=== PATIENT | female | born 1990 | race Caucasian/White ===

== ENCOUNTER 2018-04-29 21:30 | Emergency (ER) | payer BC ==
[2018-04-29 21:50] VITALS: TEMP 98.9; O2SAT 96
--- NOTE | 2018-04-29 22:29 | ED.PDOC ---
History of Present Illness - General Chief Complaint: Dental/Mouth Stated Complaint: toothache Time Seen by Provider: 04/29/18 22:26 Source: patient Exam Limitations: no limitations - History of Present Illness Initial Comments: Melina Steven 27 y/o female stated that she had toothache the last 2 days gradually getting more achy called up her dentist today and unable to see her until next week. Timing/Duration: gradual Severity: moderate EENT Location: dental Prearrival Treatment: over the counter meds Presenting Symptoms: toothache Improving Factors: nothing Worsening Factors: nothing Associated Symptoms: denies symptoms Allergies/Adverse Reactions: Allergies Cefprozil [From Cefzil] Allergy (Mild, Verified 09/23/12 06:53) Hives Penicillin G Allergy (Verified 09/23/12 06:53) Hives lorbid Allergy (Uncoded 09/23/12 00:55) Rash Home Medications: Ambulatory Orders Acetaminophen W/ Codeine [Tylenol W/ CODEINE #3] 1 ea PO Q4H PRN #12 07/25/14 Ciprofloxacin [Cipro] 500 mg PO BID #14 tab 07/25/14 Acetamin W/Cod #3 Tab [Tylenol w/CODEINE #3] 1 ea PO TID #3 tab 04/29/18 Clindamycin HCl 300 mg PO BID 10 Days #20 cap 04/29/18 Review of Systems - Review of Systems Constitutional: States: no symptoms reported EENTM: States: see HPI Respiratory: States: no symptoms reported Cardiology: States: no symptoms reported Gastrointestinal/Abdominal: States: no symptoms reported Past Medical History (General) - Patient Medical History Hx Seizures: No Hx Congestive Heart Failure: No Hx Diabetes: No Hx Cancer: No Hx Hepatitis C: No Surgical History: appendectomy, cholecystectomy, tonsillectomy, other - btl - Vaccination History Hx Tetanus, Diphtheria Vaccination: No Hx Influenza Vaccination: No Hx Pneumococcal Vaccination: No Immunizations Up to Date: No - Social History Hx Tobacco Use: No Hx Chewing Tobacco Use: No Hx Alcohol Use: No Hx Substance Use: No Hx Substance Use Treatment: No Hx Depression: No Feels Threatened In Home Enviroment: No Feels Threatened In a Relationship: No Hx Physical Abuse: No Hx Emotional Abuse: No Hx Suspected Abuse: No - Activities of Daily Living Hospice Agency (if applicable):: None - Female History Patient is a Female of Child Bearing Age (10 -59 yrs old): No Hx Last Menstrual Period: 04/27/18 Patient : No Family Medical History - Family History Mother Family History: Unknown Physical Exam - Physical Exam General Appearance: Alert, Comfortable, No apparent distress Eye Exam: bilateral normal Ear Exam: bilateral ear: auricle normal, canal normal, TM normal Nasal Exam: normal inspection Throat Exam: normal mouth inspection, pharynx normal, dental tenderness - right upper molar with dental cavity and tenderness gum surrounding teeth Progress - Progress Progress: 04/29/18 22:33 Vital Signs - 24 hr 04/29/18 21:30 Temperature 98.9 F Pulse Rate [ 94 H Apical] Respiratory 18 Rate Blood Pressure 137/78 [Left Arm] O2 Sat by Pulse 96 Oximetry - EKG/XRAY/CT CT Ordered: No CT Interpretation Call Back: No Departure - Departure Clinical Impression: Pain due to dental caries, Dental caries on pit and fissure surface penetrating into pulp Time of Disposition: 22:34 Disposition: Discharge to Home or Self Care Condition: Good Departure Forms: ED Discharge - Pt. Copy, Patient Portal Self Enrollment Instructions: DI for Dental Pain Diet: other - SOFT DIET UNTIL BETTER Referrals: Jihan Avila NP [Primary Care Provider] - 1-2 Weeks Prescriptions: Acetamin W/Cod #3 Tab [Tylenol w/CODEINE #3] 1 ea PO TID #3 tab Clindamycin HCl 300 mg PO BID 10 Days #20 cap Home Medications: Ambulatory Orders Acetaminophen W/ Codeine [Tylenol W/ CODEINE #3] 1 ea PO Q4H PRN #12 07/25/14 Ciprofloxacin [Cipro] 500 mg PO BID #14 tab 07/25/14 Acetamin W/Cod #3 Tab [Tylenol w/CODEINE #3] 1 ea PO TID #3 tab 04/29/18 Clindamycin HCl 300 mg PO BID 10 Days #20 cap 04/29/18 Additional Instructions: NEED TO CALL UP YOUR DENTIST 03 May 2018 for appointment
[2018-04-29] MEDS ORDERED: CLINDAMYCIN HCL CAP 150 MG CAP PO ONE (22:35)
[2018-04-29] MEDS ORDERED: HYDROCOD/APAP 10/325 (ER DISP) # 3 tablets PO ONE (22:35)
[2018-04-29] MEDS ORDERED: HYDROCOD/APAP 7.5/325 (ER DISP) #3 TAB PO ONE (22:43)
[2018-04-29 22:54] VITALS: BP 128/78
== END 2018-04-29 22:53 | disposition home or self-care (01) ==
LOC: ER 21:30
DX: K02.9 Dental caries, unspecified (principal); Z88.1 Allergy status to other antibiotic agents; Z88.0 Allergy status to penicillin; Z91.041 Radiographic dye allergy status